=== PATIENT | female | born 1975 | race Caucasian/White ===

== ENCOUNTER → 2016-07-08 | Outpatient (CLI) | payer BC ==
[~2016-07-08] MED LIST: COLACE100 MG PO; DIAZEPAM2 MG PO; ENDOCET 5-3251 EACH PO; IBUPROFEN800 MG PO; KEFLEX500 MG PO; LEVAQUIN750 MG PO; LO-DOSE ASPIRIN81 M1 PO; LOSARTAN POTASS25 MG PO; MOBIC15 MG PO; NORCO 5/3251 TABLET PO; OMEPRAZOLE40 M1 PO; OXYCODONE HCL5 MG PO; PEPCID20 MG PO; PRENATAL TABLE1 EAC3 PO; ROBITUSSIN AC,T10 ML PO; SALINE NOSE SPR45 M1 BOTH NARES; TYLENOL EXTRA500 MG PO; ULTRAM50 MG PO; ZANTAC75 M1 PO; ZOFRAN4 MG PO; ZYRTEC10 M3 PO
== END | disposition home or self-care (01) ==
LOC: RES 06-29 13:00
DX: R06.89 Other abnormalities of breathing (principal); R05 Cough
CPT/HCPCS: 71020; 94060; 94726; 94729

== ENCOUNTER → 2016-09-12 | Outpatient (CLI) | payer BC ==
[~2016-09-12] VITALS: Ht 157.5 cm; Wt 99.8 kg
[~2016-09-12] MED LIST changes: +LISINOPRIL5 MG PO; +PROAIR HFA8.5 GM IH
== END | disposition home or self-care (01) ==
LOC: AMB 08-05 09:00
PROC: 0DJ08ZZ Inspection of Upper Intestinal Tract, Via Natural or Artificial Opening Endoscopic (ICD-10-PCS; principal; 2016-09-12)
DX: R10.13 Epigastric pain (principal); R11.0 Nausea; K21.9 Gastro-esophageal reflux disease without esophagitis; R19.7 Diarrhea, unspecified; R93.5 Abnormal findings on diagnostic imaging of other abdominal regions, including retroperitoneum; Z85.3 Personal history of malignant neoplasm of breast; I10 Essential (primary) hypertension; E66.3 Overweight; Z83.49 Family history of other endocrine, nutritional and metabolic diseases; Z82.5 Family history of asthma and other chronic lower respiratory diseases; Z80.41 Family history of malignant neoplasm of ovary; Z82.0 Family history of epilepsy and other diseases of the nervous system; Z87.891 Personal history of nicotine dependence
CPT/HCPCS: J2250; J3010

== ENCOUNTER 2016-12-19 06:55 | Day surgery (SDC) | payer BC ==
[~2016-12-19] VITALS: Ht 157.5 cm; Wt 104.3 kg
[2016-12-19 07:47] VITALS: BP 152/71
[2016-12-19] MEDS ORDERED: IBUPROFEN800 MG PO (11:24)
[2016-12-19] MEDS ORDERED: ENDOCET 5-3251 EACH PO (11:24)
[2016-12-19 12:39] VITALS: BP 125/79
[2016-12-19 13:40] VITALS: BP 110/50
[2016-12-19 15:12] VITALS: BP 126/78
== END 2016-12-19 15:15 | disposition home or self-care (01) ==
LOC: SDC 06:55
DX: D25.2 Subserosal leiomyoma of uterus (principal); N80.0 Endometriosis of uterus; N83.8 Other noninflammatory disorders of ovary, fallopian tube and broad ligament; N92.0 Excessive and frequent menstruation with regular cycle; I10 Essential (primary) hypertension; K21.9 Gastro-esophageal reflux disease without esophagitis; Z85.3 Personal history of malignant neoplasm of breast; Z90.13 Acquired absence of bilateral breasts and nipples; Z88.2 Allergy status to sulfonamides; Z87.891 Personal history of nicotine dependence
CPT/HCPCS: 88307; J0131; J0690; J1100; J1170; J1885; J2250; J2405; J2710; J3010

== ENCOUNTER 2018-01-27 09:29 | Emergency (ER) | payer BC ==
[~2018-01-27] VITALS: Ht 157.5 cm; Wt 80.9 kg
[2018-01-27 09:59] LABS: HEMATOCRIT 42.3 % (36.0-46.0); HEMOGLOBIN 14.2 G/DL (11.9-15.5); MCH 30.6 PG (29.0-34.0); MCHC 33.6 G/DL (30.0-36.0); MCV 91.2 FL (83-99); PLATELET COUNT 227 K/uL (156-360); RBC DIS.WIDTH-CV 13.4 % (11.8-14.6); RBC DIS.WIDTH-SD 44.9 % (39-53); RED BLOOD COUNT 4.64 M/uL (3.80-5.20); WHITE BLOOD COUNT 9.1 K/uL (4.1-10.2)
[2018-01-27 10:16] LABS: APPEARANCE CLEAR ((CLEAR)); BILIRUBIN NEGATIVE; BLOOD NEGATIVE; COLOR YELLOW ((YELLOW)); GLUCOSE (STRIP) NEGATIVE; KETONES NEGATIVE; LEUKOCYTES NEGATIVE; NITRITE NEGATIVE; PROTEIN (STRIP) 30; SPECIFIC GRAVITY 1.021 (1.000-1.030); UCUL ADDED? NO; UROBILINOGEN 0.2 MG/DL (0.2-1.0)
[2018-01-27 11:09] LABS: ALBUMIN 3.6 G/DL (3.2-4.8); CHLORIDE 108 MEQ/L (99-109); POTASSIUM 3.8 MEQ/L (3.7-5.4); SODIUM 141 MEQ/L (136-147); TOTAL BILIRUBIN 0.3 MG/DL (0.0-1.0)
[2018-01-27 11:14] LABS: ALKALINE PHOSPHATASE 64 IU/L (3-129); ALT (GPT) 12 IU/L (3-49); AST (GOT) 13 IU/L (2-34); CREATININE 0.6 MG/DL (0.6-1.3); GFR ESTIMATE (CALCULATED) > 59 mL/min/; GLUCOSE 122 mg/dL (70-99); TOTAL PROTEIN 6.1 G/DL (6.4-8.3); UREA NITROGEN (BUN) 15 mg/dL (9-23)
[2018-01-27] MEDS ORDERED: MOTRIN600 MG PO (14:07)
[2018-01-27] MEDS ORDERED: ULTRAM50 MG PO (14:07)
[2018-01-27 14:28] VITALS: BP 122/65
== END 2018-01-27 14:30 | disposition home or self-care (01) ==
LOC: EME 09:29
PROVIDERS: Nurse Practitioner Family
DX: N83.201 Unspecified ovarian cyst, right side (principal); R11.2 Nausea with vomiting, unspecified; Z85.3 Personal history of malignant neoplasm of breast; Z90.13 Acquired absence of bilateral breasts and nipples; Z87.442 Personal history of urinary calculi; Z87.891 Personal history of nicotine dependence; Z90.711 Acquired absence of uterus with remaining cervical stump; Z88.2 Allergy status to sulfonamides
CPT/HCPCS: 74177; 76856; 80053; 81003; 85027; 99281; 99285; J1885; J2405; J3010; J7030

== ENCOUNTER 2018-02-08 10:27 | Day surgery (SDC) | payer BC ==
[~2018-02-08] VITALS: Ht 157.5 cm; Wt 81.6 kg
[~2018-02-08 10:27] MED LIST changes: +AMBIEN10 MG PO; +FLEXERIL5 MG PO; +KEFLEX250 MG PO; +MOTRIN600 MG PO; +TRANSDERM-SCOP1 EACH TD; +XANAX0.5 MG PO
[2018-02-08 11:04] VITALS: BP 124/76
[2018-02-08 16:31] VITALS: BP 109/59
[2018-02-08 17:35] VITALS: BP 107/59
== END 2018-02-08 18:00 | disposition home or self-care (01) ==
LOC: SDC
DX: Z90.13 Acquired absence of bilateral breasts and nipples (principal); Z85.3 Personal history of malignant neoplasm of breast; I10 Essential (primary) hypertension; K21.9 Gastro-esophageal reflux disease without esophagitis; Z88.2 Allergy status to sulfonamides; Z87.891 Personal history of nicotine dependence
CPT/HCPCS: 93005; J0131; J0295; J1100; J1170; J2250; J2405; J3010; J7050